=== PATIENT | female | born 1960 | race Caucasian/White ===

== ENCOUNTER → 2017-08-08 10:17 | Day surgery (SDC) | payer MEDICARE, MEDICAID ==
[~2017-08-08 10:17] MED LIST: Bupivacaine 0.25% SDV* 30 ML ONE; Lidocaine 2% PF * 5 ML VIAL ONE; Midazolam* 1 MG/ML 2 ML VIAL (2 MG) ONE; Propofol* 10 MG/ML 20 ML BTL IV PUSH ONE; ceFAZolin 2 GM PREMIX (*) 2 GM/50 ML BAG IVPB ONE; fentaNYL* 50 MCG/ML 2 ML VIAL (100 MCG VIAL) ONE
[2017-08-08 15:21] VITALS: BP 116/62
--- NOTE | 2017-08-09 04:01 | OP ---
DATE OF OPERATION: 08/08/17 - [facility] DATE OF : 60 SURGEON: Akbar Cartwright MD SUPPLY PLANNER: KIM Soto ANESTHESIOLOGIST: Dr. Hooper. ANESTHESIA: Local MAC. PRE-OP DIAGNOSIS: Right de Quervain's tenosynovitis. POST-OP DIAGNOSIS: Right de Quervain's tenosynovitis. OPERATIVE PROCEDURE: Right de Quervain's release. INDICATIONS: Jovana had her symptoms come back after complete resolution with an injection. We talked about risks and benefits and she wished to proceed. ESTIMATED BLOOD LOSS: 2 mL. COMPLICATIONS: None. FINDINGS: There was an accessory compartment. DESCRIPTION OF PROCEDURE: Jovana was seen in the preoperative holding area. The correct site, side, and procedure were identified and she got some anesthesia. I infiltrated the operative area with 0.25% plain Marcaine. The arm was then prepped and draped in the usual fashion and time-out was performed. I exsanguinated the arm with the Esmarch and the tourniquet was inflated to 250 mmHg. I then made a 2-cm transverse incision just proximal to the radial styloid. Dissection was carried down bluntly. The nerve was retracted. I then came along the dorsal side of the tendon sheath and made a longitudinal incision in line with the tendons. I completed the release distally and proximally with the tenotomy scissors, taking great care to preserve the nerve. There was an accessory compartment. This was released and the septum was excised. I then irrigated out the wound and excised some of the tenosynovitis. The wound was closed with 4-0 Monocryl suture and Steri-Strips. The wound was dressed with Xeroform, 4x4s, sterile Webril, and an Juna A wrap. She was woken up and taken to recovery room in stable condition. [id number]/[facility] #: [id number] [facility]USAlfonzo
== END | disposition home or self-care (01) ==
LOC: OREAST 10:17
PROVIDERS: ATTEND Orthopaedic Surgery Hand Surgery
DX: M65.4 Radial styloid tenosynovitis [de Quervain] (principal); Z95.2 Presence of prosthetic heart valve; Z79.01 Long term (current) use of anticoagulants; Z79.899 Other long term (current) drug therapy; Z87.891 Personal history of nicotine dependence; J44.9 Chronic obstructive pulmonary disease, unspecified; E03.9 Hypothyroidism, unspecified; Z85.118 Personal history of other malignant neoplasm of bronchus and lung
CPT/HCPCS: J0690; J2250; J2704; J3010